=== PATIENT | female | born 1955 | race Asian ===

== ENCOUNTER 2023-05-14 19:17 | Emergency (ER) | payer MEDICARE, OTHER ==
[2023-05-15] MEDS ORDERED: IBUP-1492 PO (00:20)
[2023-05-15] MEDS ORDERED: KETOROLAC TROMETHAMINE 30 MG/ML VIAL IM ONE (00:30)
[2023-05-15 00:43] VITALS: BP 134/72; PULSE 72; RESP 18
== END 2023-05-15 00:45 | disposition home or self-care (01) ==
LOC: EMS 19:19
DX: R07.89 Other chest pain (principal); V98.8XXA Other specified transport accidents, initial encounter; Y93.89 Activity, other specified; Y92.89 Other specified places as the place of occurrence of the external cause; Y99.8 Other external cause status
CPT/HCPCS: 99283; 71045; 96372; J1885